=== PATIENT | male | born 1960 | race American Indian/Alaskan Native ===

== ENCOUNTER 2020-08-31 21:14 | Emergency (ER) | payer SELFPAY ==
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
[2020-08-31 21:29] VITALS: BP 157/90
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
== END 2020-08-31 21:35 | disposition left against medical advice (07) ==
LOC: ED 21:14
DX: Z00.8 Encounter for other general examination (principal); Z53.21 Procedure and treatment not carried out due to patient leaving prior to being seen by health care provider
CPT/HCPCS: 72100